=== PATIENT | male | born 1945 | race Caucasian/White ===

== ENCOUNTER 2020-01-09 15:29 | Inpatient (IN) | payer OTHER ==
[~2020-01-09] VITALS: Ht 172.7 cm; Wt 81.2 kg
[2020-01-09 15:30] VITALS: BP 129/81
[2020-01-09 15:56] LABS: ABSOLUTE BASOPHILS 0.1 thou/uL (0.0-0.2); ABSOLUTE EOSINOPHILS 0.2 thou/uL (0.0-0.7); ABSOLUTE LYMPHOCYTES 2.1 thou/uL (0.8-5.3); ABSOLUTE MONOCYTES 0.8 thou/uL (0.0-1.2); ABSOLUTE NEUTROPHILS 10.6 thou/uL (1.6-8.1); BASOPHILS 0.4 %; EOSINOPHILS 1.2 %; HEMATOCRIT 40.9 % (42.0-52.0); HEMOGLOBIN 13.4 gm/dL (14.0-18.0); LYMPHOCYTES 15.4 %; MCH 27.5 pg (26.0-34.0); MCHC 32.7 g/dL (28.0-37.0); MPV 7.8 fl. (7.2-11.1); NUCLEATED RBCS 0 /100WBC; PLATELET COUNT* 331 thou/uL (150-400); RBC 4.87 mil/uL (4.50-6.00); WBC 13.8 thou/uL (4.0-11.0)
[2020-01-09 16:03] LABS: CALCIUM 9.4 mg/dL (8.5-10.1); CREATININE 1.9 mg/dL (0.6-1.3); POTASSIUM 4.5 mmol/L (3.5-5.1)
[2020-01-09 16:07] LABS: APTT 25.2 Seconds (25.0-31.3); INR 1.1; PROTIME 11.1 Seconds (9.20-11.50)
[2020-01-09 16:12] LABS: ALBUMIN 3.4 g/dL (3.4-5.0); TOTAL BILIRUBIN 0.5 mg/dL (<0.1-1.0)
[2020-01-09 16:57] LABS: TOTAL PROTEIN 7.4 g/dL (6.4-8.2)
[2020-01-09 17:01] LABS: BE -3.3 mmol/L (-2 to +3); pH 7.363 (7.340-7.450)
[2020-01-09 17:03] LABS: PO2 139.3 mmHg (75.0-100.0)
[2020-01-09 17:05] LABS: ESR (SEDRATE) 39 mm/hr (0-20)
[2020-01-09 17:30] LABS: URINE BILIRUBIN NEGATIVE (Negative); URINE BLOOD TRACE (Negative); URINE CLARITY CLEAR; URINE COLOR YELLOW; URINE GLUCOSE-RANDOM 1+ (Negative); URINE KETONES NEGATIVE (Negative); URINE LEUKOCYTES-REFLEX 2+ (Negative); URINE NITRITE-REFLEX POSITIVE (Negative); URINE PROTEIN 2+ (Negative); URINE SPECIFIC GRAVITY >= 1.030 (1.005-1.030); URINE UROBILINOGEN 0.2 E.U./dl (0.2-1.0)
[2020-01-09 17:38] LABS: AMP/METHAMP Negative (Negative); BARBITURATES Negative (Negative); BENZODIAZEPINES POSITIVE (Negative); COCAINE Negative (Negative); METHADONE Negative (Negative); OPIATES Negative (Negative); PCP Negative (Negative); THC Negative (Negative)
[2020-01-09 17:39] LABS: BACTERIA-REFLEX >30 Many /HPF (None Seen); CASTS None Seen /LPF (None Seen); CRYSTALS None Seen /LPF (None Seen); SQUAMOUS 0-3 Few /LPF (0-3); URINE RBC 0-2 Rare /HPF (0-2); URINE WBC-REFLEX >25 Many /HPF (0-5)
[2020-01-09] MEDS ORDERED: NORVASC10 MG PO (17:53)
[2020-01-09] MEDS ORDERED: ALPRAZOLAM 0.50.5 M1 PO (17:53)
[2020-01-09] MEDS ORDERED: ELIQUIS5 MG PO (17:53)
[2020-01-09] MEDS ORDERED: GLIMEPIRIDE4 MG PO (17:54)
[2020-01-09] MEDS ORDERED: LASIX 40 MG TAB40 MG PO (17:54)
[2020-01-09] MEDS ORDERED: CHILDREN'S ASPI81 M1 PO (17:54)
[2020-01-09] MEDS ORDERED: GLUCOPHAGE1000 MG PO (17:54)
[2020-01-09] MEDS ORDERED: FISH OIL 1,0001 EAC9 PO (17:54)
[2020-01-09] MEDS ORDERED: NITROSTAT0.4 M1 SUBLING (17:55)
[2020-01-09] MEDS ORDERED: OMEPRAZOLE40 MG PO (17:55)
[2020-01-09] MEDS ORDERED: NORTRIPTYLINE H50 M3 PO (17:55)
[2020-01-09] MEDS ORDERED: SYNTHROID25 MC1 PO (17:56)
[2020-01-09] MEDS ORDERED: FLOMAX0.4 MG PO (17:56)
[2020-01-09] MEDS ORDERED: ZOCOR 20 MG TAB20 M1 PO (17:56)
[2020-01-09] MEDS ORDERED: TOPROL XL200 MG PO (17:56)
[2020-01-09] MEDS ORDERED: ENTRESTO 24 MG1 EACH PO (17:56)
[2020-01-09 20:59] VITALS: BP 168/75
[2020-01-10] VITALS (8 sets, daily range): BP systolic 133–190; BP diastolic 46–92
--- NOTE | 2020-01-10 09:22 | EKG ---
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
--- NOTE | 2020-01-10 10:52 | CON ---
[address] [address] CONSULTATION Name: HENRIETTA HUANG Room: [address] IN M.R.#: [id number] Admission: 01/09/20 Attend Phys: Matt Ibarra MD Discharge: Date of : 41 Report #: [id number] THIS REPORT FOR: //name// cc: ASHLEY Aly family physician/PCP ASHLEY - No family physician/PCP ~ THIS REPORT FOR: //name// CC: ASHLEY physician/PCP Matt Ibarra DATE OF SERVICE: 01/09/2020 HISTORY OF PRESENT ILLNESS: This is a 75-year-old male patient who was discussed with the provider in the Emergency Room. Apparently, this patient does not remember anything about the event. He drifted into the shoulder and the ambulance arrived, he was not saturating well. Heat exposure is not known. He feels back to his baseline now. Positive for some anxiety, for which he takes Xanax. He is also on anticoagulation. As per record, I forgot to ask him why he is on that. He does not remember anything about the episode, but now he feels back to his baseline. REVIEW OF SYSTEMS: Positive for some anxiety and depression. I do not know what the patient's blood sugar was when this episode happened. He apparently does have a history of diabetes. He denies any prior history of stroke. He does have a pacemaker. This was his relevant 14-point review of system. PAST MEDICAL HISTORY: Negative for any stroke. FAMILY HISTORY: Negative for any early stroke. SOCIAL HISTORY: The patient does have a son. We will try to reach him in the morning. PHYSICAL EXAMINATION: The patient's examinations indicate that he is alert and responsive. He is oriented. He is able to follow simple and complex command. His cranial nerve examinations appear unremarkable. His neuromuscular examination is symmetrical. Reflexes are diminished. His position sense is intact. I could not look at the fundus. There is no meningeal sign. There is no carotid bruit. He does have a pacemaker. There is no respiratory difficulty. Blood pressure is 168/75, respiration is 20, pulse is 88, temperature is 98.4. LABORATORY DATA: White count is 13.8. His lactic acid was high, but is back to his baseline. His blood sugar is high when he is here. [place] [address] CONSULTATION Name: HUANGHENRIETTA Room: [address]#: [id number] Admission: 01/09/20 Attend Phys: Matt Ibarra MD Discharge: Date of : 41 Report #: [id number] IMPRESSION: I do not suspect the etiology of the patient's symptom is neurological. He has a pacemaker, so we cannot do an MRI. He just got dye for chest CT and I hate to give him dye for a second time in a day and his GFR is only 35. So, I will do the test and I will do an EEG and a carotid Doppler as an initial test and go from there. Dr. Olivarez will follow up this patient with you from tomorrow. Thank you very much for this referral. <ELECTRONICALLY SIGNED> By: Edwar Kennedy MD 01/10/20 1052 [id number] [id number] Kennedy MD /nt
--- NOTE | 2020-01-12 11:06 | EKG ---
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 : 1945 Requested By: Angelia Torres Order Number: [id number] MD: Felix Sandoval Measurements Intervals [place] Rate: 134 P: 211 [place]: 95 QRS: -154 QRSD: 133 T: 30 QT: 398 QTc: 595 Interpretive Statements Sinus or ectopic atrial tachycardia RBBB and LPFB Baseline wander in lead(s) V3 No previous ECG available for comparison Electronically Signed On 01-12-2020 11:06:29 CDT by Felix Sandoval [email or web address] <ELECTRONICALLY SIGNED> By: Felix Sandoval MD, [facility] 01/12/20 1106 1536 1536 Felix Sandoval MD, [facility] /EPI
--- NOTE | 2020-01-12 11:11 | EKG ---
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 : 1945 Requested By: Matt Ibarra Order Number: [id number] Reading MD: Felix Sandoval Measurements Intervals [place] Rate: 56 P: 36 [place]: 48 QRS: -22 QRSD: 112 T: 20 QT: 468 QTc: 452 Interpretive Statements Sinus rhythm Short CA interval Left ventricular hypertrophy Inferior infarct, old Compared to ECG 01/10/2020 03:11:19 Short CA interval now present Prolonged QT interval no longer present Electronically Signed On 01-12-2020 11:10:17 CDT by Felix Sandoval [email or web address] <ELECTRONICALLY SIGNED> By: Felix Sandoval MD, [facility] 01/12/20 1110 1042 1042 Felix Sandoval MD, [facility] /EPI
== END 2020-01-10 20:45 | disposition short-term general hospital (02) | DRG 871 ==
LOC: M.ERS 15:29 → M.2W 18:54 → M.TBA-ER 18:54 → M.2W 21:05
PROVIDERS: Physician Assistant; ADMIT Internal Medicine; ATTEND Internal Medicine
DX: A41.9 Sepsis, unspecified organism (principal); I21.4 Non-ST elevation (NSTEMI) myocardial infarction; N39.0 Urinary tract infection, site not specified; G93.40 Encephalopathy, unspecified; I25.10 Atherosclerotic heart disease of native coronary artery without angina pectoris; F41.9 Anxiety disorder, unspecified; I10 Essential (primary) hypertension; E03.9 Hypothyroidism, unspecified; E11.649 Type 2 diabetes mellitus with hypoglycemia without coma; M19.90 Unspecified osteoarthritis, unspecified site; F32.9 Major depressive disorder, single episode, unspecified; Z66 Do not resuscitate; Z20.828 Contact with and (suspected) exposure to other viral communicable diseases; Z96.651 Presence of right artificial knee joint; Z79.01 Long term (current) use of anticoagulants; Z79.899 Other long term (current) drug therapy; Z79.84 Long term (current) use of oral hypoglycemic drugs; Z79.82 Long term (current) use of aspirin; Z95.0 Presence of cardiac pacemaker; Z95.1 Presence of aortocoronary bypass graft; Z95.2 Presence of prosthetic heart valve